=== PATIENT | male | born 1975 | race Caucasian/White ===

== ENCOUNTER → 2019-10-27 | Outpatient (CLI) | payer BC ==
--- NOTE | 2019-11-03 09:33 | RESP ---
DATE OF SERVICE: 10/27/2019 ATTENDING PHYSICIAN: Dajuan Nunez MD. The patient underwent a spirometry dated 10/27/2019. The FEV1 to FVC ratio was 76%, FEV1 was preserved at 95% of predicted, FVC was preserved at 4.51 liters or 98% of predicted. IMPRESSION: 1. Spirometry revealed no evidence of obstructive lung disease. 2. If warranted, perform lung volumes to rule out restrictive process. RAMONA GARZA MD DR: ARCADIO/nts JOB#: [id number] / [id number]
== END | disposition home or self-care (01) ==
LOC: PF 08:50
PROVIDERS: ATTEND Family Medicine
DX: R05 Cough (principal)
CPT/HCPCS: 94010

== ENCOUNTER → 2021-07-23 | Outpatient (CLI) | payer OTHER, BC | LOC: LAB 10:01 | PROVIDERS: ATTEND Internal Medicine Pulmonary Disease | DX: Z20.822 Contact with and (suspected) exposure to COVID-19 (principal) | CPT/HCPCS: U0003; U0005 ==

== ENCOUNTER → 2021-07-29 | Outpatient (CLI) | payer OTHER, BC | LOC: LAB 07:15 | PROVIDERS: ATTEND Internal Medicine Pulmonary Disease | DX: Z20.822 Contact with and (suspected) exposure to COVID-19 (principal) | CPT/HCPCS: U0003; U0005 ==

== ENCOUNTER → 2021-09-08 | Outpatient (CLI) | payer BC ==
[~2021-09-08] MED LIST: GADOTERATE 5 MMOL/10ML VIAL. IVP ONE
[2021-09-08 14:53] LABS: CREATININE 0.9 mg/dL (0.7-1.3); GFR 91.7
--- NOTE | 2021-09-08 17:19 | RAD ---
EXAM: Thoracic and lumbar spine MRI without contrast. HISTORY: Guillain-[place] syndrome. TECHNIQUE: Multiplanar, multisequence magnetic resonance imaging of the thoracic and lumbar spine was performed without contrast. COMPARISON: None. FINDINGS: Lumbar spine: There is no listhesis. The vertebral bodies are normal in height and the disc spaces ar e preserved. There is minimal disc desiccation at L4-L5. There is a benign osseous hemangioma within T12. There is no suspicious osseous lesion. There is no acute or subacute fracture. The conus termina nat at L1. There is a tiny simple left renal cyst. Follow-up is not routinely performed for simple cy sts. At L1-L2, L2-L3 and L3-L4, there is no stenosis. At L4-L5, there is a right foraminal to extra foraminal disc protrusion and annular tear superimposed on a minimal disc bulge. There is mild right greater than left foraminal stenosis with abutment of t he exiting right L4 nerve root. At L5-S1, there is mild endplate remodeling. There is minimal bilateral foraminal stenosis. Thoracic spine: The qual field manager images of the cervical spine demonstrate slight retrolisthesis and degenera tive endplate remodeling with disc space narrowing at C5-C6. This is not formally assessed on this ex am. There is also a suspected shallow posterior central disc protrusion at C6-C7 which is not formall y assessed on this exam. There is degenerative endplate remodeling and there are prominent endplate Schmorl's nodes at the mid and lower thoracic levels. There is no acute or subacute fracture. There are few osseous hemangiomas . There is no suspicious osseous lesion. There is deformation of the thoracic spinal cord at T7-T8 du e to a disc protrusion. There is no convincing spinal cord signal abnormality. At T7-T8, there is a right paracentral disc protrusion which deforms the right ventral aspect of the spinal cord. At T8-T9, there is a tiny posterior central disc protrusion which slightly effaces the anterior theca l sac. No significant thoracic foraminal or central canal stenosis is seen. IMPRESSION: 1. Degenerative change involving the thoracic and lumbar spine, described in detail above. This is as sociated with mild right greater than left foraminal stenosis and abutment the exiting right L4 nerve root at L4-L5 and minimal bilateral foraminal stenosis at L5-S1. There is slight deformation of the spinal cord due to redistribution at T7-T8, without associated stenosis. 2. No convincing spinal cord lesion. Electronically signed by: Ama Richardson MD (09/08/2021 5:17 PM) [id number]
--- NOTE | 2021-09-08 17:19 | RAD ---
EXAM: Thoracic and lumbar spine MRI without contrast. HISTORY: Guillain-[place] syndrome. TECHNIQUE: Multiplanar, multisequence magnetic resonance imaging of the thoracic and lumbar spine was performed without contrast. COMPARISON: None. FINDINGS: Lumbar spine: There is no listhesis. The vertebral bodies are normal in height and the disc spaces ar e preserved. There is minimal disc desiccation at L4-L5. There is a benign osseous hemangioma within T12. There is no suspicious osseous lesion. There is no acute or subacute fracture. The conus termina nat at L1. There is a tiny simple left renal cyst. Follow-up is not routinely performed for simple cy sts. At L1-L2, L2-L3 and L3-L4, there is no stenosis. At L4-L5, there is a right foraminal to extra foraminal disc protrusion and annular tear superimposed on a minimal disc bulge. There is mild right greater than left foraminal stenosis with abutment of t he exiting right L4 nerve root. At L5-S1, there is mild endplate remodeling. There is minimal bilateral foraminal stenosis. Thoracic spine: The roller coaster operator images of the cervical spine demonstrate slight retrolisthesis and degenera tive endplate remodeling with disc space narrowing at C5-C6. This is not formally assessed on this ex am. There is also a suspected shallow posterior central disc protrusion at C6-C7 which is not formall y assessed on this exam. There is degenerative endplate remodeling and there are prominent endplate Schmorl's nodes at the mid and lower thoracic levels. There is no acute or subacute fracture. There are few osseous hemangiomas . There is no suspicious osseous lesion. There is deformation of the thoracic spinal cord at T7-T8 du e to a disc protrusion. There is no convincing spinal cord signal abnormality. At T7-T8, there is a right paracentral disc protrusion which deforms the right ventral aspect of the spinal cord. At T8-T9, there is a tiny posterior central disc protrusion which slightly effaces the anterior theca l sac. No significant thoracic foraminal or central canal stenosis is seen. IMPRESSION: 1. Degenerative change involving the thoracic and lumbar spine, described in detail above. This is as sociated with mild right greater than left foraminal stenosis and abutment the exiting right L4 nerve root at L4-L5 and minimal bilateral foraminal stenosis at L5-S1. There is slight deformation of the spinal cord due to redistribution at T7-T8, without associated stenosis. 2. No convincing spinal cord lesion. Electronically signed by: Ama Richardson MD (09/08/2021 5:17 PM) [id number]
--- NOTE | 2021-09-10 09:05 | RAD ---
EXAM: Thoracic and lumbar spine MRI without contrast. HISTORY: Guillain-[place] syndrome. TECHNIQUE: Multiplanar, multisequence magnetic resonance imaging of the thoracic and lumbar spine was performed without contrast. COMPARISON: None. FINDINGS: Lumbar spine: There is no listhesis. The vertebral bodies are normal in height and the disc spaces are preserved. There is minimal disc desiccation at L4-L5. There is a benign osseous hemangioma within T12. There is no suspicious osseous lesion. There is no acute or subacute fracture. The conus terminates at L1. There is a tiny simple left renal cyst. Follow-up is not routinely performed for simple cysts. At L1-L2, L2-L3 and L3-L4, there is no stenosis. At L4-L5, there is a right foraminal to extra foraminal disc protrusion and annular tear superimposed on a minimal disc bulge. There is mild right greater than left foraminal stenosis with abutment of the exiting right L4 nerve root. At L5-S1, there is mild endplate remodeling. There is minimal bilateral foraminal stenosis. Thoracic spine: The principal technical specialist images of the cervical spine demonstrate slight retrolisthesis and degenerative endplate remodeling with disc space narrowing at C5-C6. This is not formally assessed on this exam. There is also a suspected shallow posterior central disc protrusion at C6-C7 which is not formally assessed on this exam. There is degenerative endplate remodeling and there are prominent endplate Schmorl's nodes at the mid and lower thoracic levels. There is no acute or subacute fracture. There are few osseous hemangiomas. There is no suspicious osseous lesion. There is deformation of the thoracic spinal cord at T7-T8 due to a disc protrusion. There is no convincing spinal cord signal abnormality. At T7-T8, there is a right paracentral disc protrusion which deforms the right ventral aspect of the spinal cord. At T8-T9, there is a tiny posterior central disc protrusion which slightly effaces the anterior thecal sac. No significant thoracic foraminal or central canal stenosis is seen. IMPRESSION: 1. Degenerative change involving the thoracic and lumbar spine, described in detail above. This is associated with mild right greater than left foraminal stenosis and abutment the exiting right L4 nerve root at L4-L5 and minimal bilateral foraminal stenosis at L5-S1. There is slight deformation of the spinal cord due to redistribution at T7-T8, without associated stenosis. 2. No convincing spinal cord lesion. Electronically signed by: Ama Richardson MD (09/08/2021 5:17 PM) [id number]
--- NOTE | 2021-09-10 10:47 | RAD ---
EXAM: Thoracic and lumbar spine MRI without and with contrast. HISTORY: Guillain-[place] syndrome. TECHNIQUE: Multiplanar, multisequence magnetic resonance imaging of the thoracic and lumbar spine was performed without and with contrast. COMPARISON: None. FINDINGS: Lumbar spine: There is no listhesis. The vertebral bodies are normal in height and the disc spaces ar e preserved. There is minimal disc desiccation at L4-L5. There is a benign osseous hemangioma within T12. There is no suspicious osseous lesion. There is no acute or subacute fracture. The conus termina nat at L1. There is a tiny simple left renal cyst. Follow-up is not routinely performed for simple cy sts. No suspicious enhancing lesion is seen. At L1-L2, L2-L3 and L3-L4, there is no stenosis. At L4-L5, there is a right foraminal to extra foraminal disc protrusion and annular tear superimposed on a minimal disc bulge. There is mild right greater than left foraminal stenosis with abutment of t he exiting right L4 nerve root. At L5-S1, there is mild endplate remodeling. There is minimal bilateral foraminal stenosis. Thoracic spine: The manager emergency department images of the cervical spine demonstrate slight retrolisthesis and degenera tive endplate remodeling with disc space narrowing at C5-C6. This is not formally assessed on this ex am. There is also a suspected shallow posterior central disc protrusion at C6-C7 which is not formall y assessed on this exam. There is degenerative endplate remodeling and there are prominent endplate Schmorl's nodes at the mid and lower thoracic levels. There is no acute or subacute fracture. There are few osseous hemangiomas . There is no suspicious osseous lesion. There is deformation of the thoracic spinal cord at T7-T8 du e to a disc protrusion. There is no convincing spinal cord signal abnormality. At T7-T8, there is a right paracentral disc protrusion which deforms the right ventral aspect of the spinal cord. At T8-T9, there is a tiny posterior central disc protrusion which slightly effaces the anterior theca l sac. No significant thoracic foraminal or central canal stenosis is seen. IMPRESSION: 1. Degenerative change involving the thoracic and lumbar spine, described in detail above. This is as sociated with mild right greater than left foraminal stenosis and abutment the exiting right L4 nerve root at L4-L5 and minimal bilateral foraminal stenosis at L5-S1. There is slight deformation of the spinal cord due to redistribution at T7-T8, without associated stenosis. 2. No convincing spinal cord lesion. Electronically signed by: Ama Richardson MD (09/10/2021 10:44 AM) [id number]
== END ==
LOC: MRI 13:31
PROVIDERS: ATTEND Family Medicine
DX: M51.25 Other intervertebral disc displacement, thoracolumbar region (principal); M48.07 Spinal stenosis, lumbosacral region; M51.44 Schmorl's nodes, thoracic region; M48.02 Spinal stenosis, cervical region; D18.09 Hemangioma of other sites; N28.1 Cyst of kidney, acquired; G72.9 Myopathy, unspecified
CPT/HCPCS: 36415; 72157; 72158; 82565; 84520; A9575; 72146; 72148

== ENCOUNTER → 2021-12-06 | Outpatient (CLI) | payer BC | LOC: LAB 00:30 | PROVIDERS: ATTEND Internal Medicine Pulmonary Disease | DX: R53.81 Other malaise (principal); R68.89 Other general symptoms and signs; R11.0 Nausea; Z20.822 Contact with and (suspected) exposure to COVID-19 | CPT/HCPCS: U0003; U0005 ==